=== PATIENT | male | born 1990 | race Caucasian/White ===

== ENCOUNTER 2017-05-23 03:24 | Emergency (ER) | payer SELFPAY ==
[~2017-05-23] VITALS: Ht 182.9 cm; Wt 215.5 kg
[2017-05-23] MEDS ORDERED: SULFAMETH/TRIMETH 800/160 MG TABLET ONE (04:10)
[2017-05-23] MEDS ORDERED: SULFAMETH/TRIMETH 800/160 MG TABLET PO ONE (04:15)
--- NOTE | 2017-05-23 04:19 | NUR ---
Patient discharged to home in stable conditon. Written and verbal after care instructions given. Patient verbalizes understanding of instructions. Patient left with all belongings.
[2017-05-23 04:40] VITALS: BP 126/95
== END 2017-05-23 04:16 | disposition home or self-care (01) ==
LOC: ER 03:34
DX: L03.116 Cellulitis of left lower limb (principal); F17.210 Nicotine dependence, cigarettes, uncomplicated; F15.10 Other stimulant abuse, uncomplicated
CPT/HCPCS: 99283; A4663